=== PATIENT | male | born 1965 | race Two or more races ===

== ENCOUNTER 2016-11-24 05:03 | Day surgery (SDC) | payer OTHER ==
[2016-11-24] MEDS ORDERED: LIDOCAINE HCL/PF 1% 30 ML SDV ONE (06:43)
[2016-11-24] MEDS ORDERED: methylPREDNISolone ACETATE 80 MG/ML VIAL ONE (07:36)
[2016-11-24] MEDS ORDERED: CEFAZOLIN SODIUM/DEXTROSE,ISO 50 ML IV ONE (07:52)
[2016-11-24] MEDS ORDERED: IV SET PRIMARY 1 EA INFUS.SET MC ONE (07:52)
[2016-11-24] MEDS ORDERED: SECONDARY IV SET 1 EA INFUS.SET MC ONE (07:52)
[2016-11-24] MEDS ORDERED: IV LR 1000 ML 1,000 ML ONE (07:52)
[2016-11-24] MEDS ORDERED: NEEDLELESS EST SET LARGE BORE 1 EA INFUS.SET MC ONE (07:52)
== END 2016-11-24 09:05 | disposition home or self-care (01) ==
LOC: DS 05:03
PROVIDERS: ATTEND Specialist
DX: S83.241A Other tear of medial meniscus, current injury, right knee, initial encounter (principal); S83.281A Other tear of lateral meniscus, current injury, right knee, initial encounter; X58.XXXA Exposure to other specified factors, initial encounter; Y93.89 Activity, other specified; Y92.89 Other specified places as the place of occurrence of the external cause; Y99.8 Other external cause status; G43.909 Migraine, unspecified, not intractable, without status migrainosus
CPT/HCPCS: 29880; 88304; 88305; 88311; 93005; A4217; A6253 ×2; J0690; J1040; J3490; J7120